=== PATIENT | male | born 1985 | race Caucasian/White ===

== ENCOUNTER 2017-07-03 20:33 | Inpatient (IN) ==
--- NOTE | 2017-07-03 20:52 | Emergency Department Note ---
Disposition Clinical Impression: Intussusception Constipation Qualifiers: Constipation type: unspecified constipation type Qualified Code(s): K59.00 - Constipation, unspecified Disposition: Admitted As Inpatient Condition: Good Time of Disposition: 03:26 General Adult HPI - General Chief complaint: ED Abdominal Pain Stated complaint: Abdominal Pain Time Seen by Provider: 07/03/17 20:41 Nursing Notes Reviewed: Yes Vital Signs Reviewed: Yes - History of Present Illness HPI Narrative: Male patient with one-week history of constipation. Having abdominal pain. Being sent from the [facility] for intussusception. 2 day history of vomiting. - Related Data Allergies Allergy/AdvReac Type Severity Reaction Status Date / Time No Known Allergies Allergy Verified 07/03/17 20:34 All systems ED: reviewed and negative except as stated. Constitutional: Denies: fever, chills ENT ED: Denies: congestion Cardiovascular: Denies: chest pain, palpitations, syncope Respiratory: Denies: cough, dyspnea Gastrointestinal: Reports: abdominal pain, nausea, vomiting, constipation. Denies: diarrhea, hematemesis, melena, hematochezia Genitourinary: Denies: urgency, dysuria, frequency, hematuria Musculoskeletal: Denies: back pain, neck pain Integumentary: Denies: rash Neurological: Denies: headache, weakness, numbness Past Medical History - Past Medical History Medical history: Reports: no medical history Psychiatric history: Reports: anxiety, depression, PTSD - Social History Smoking Status: Current every day smoker Smokeless Tobacco Status: Yes Alcohol use: Reports: heavy Drug use: Reports: opiates Physical Exam - General Limitations: no limitations General appearance: alert, in distress (Appears in pain.) - Head Head exam: atraumatic, normocephalic, normal inspection - Eye Eye exam: Present: normal appearance, PERRL, EOMI - ENT ENT exam: normal exam, normal oropharynx, mucous membranes moist - Neck Neck exam: Present: normal inspection, full ROM, trachea midline - Chest Chest inspection: Present: normal inspection, symmetric chest wall rise - Respiratory Respiratory exam: Present: normal lung sounds bilaterally. Absent: respiratory distress - Cardiovascular Cardiovascular exam: Present: regular rate, normal rhythm, normal heart sounds - Abdominal Exam Abdominal exam: Present: soft, tenderness (Diffusely), hypoactive bowel sounds ( Present but hypoactive), other (Non-peritoneal). Absent: distention, rebound, rigidity, organomegaly, Berry's sign, Rovsing's sign, tenderness at McBurney's Point - Extremities Exam Extremities exam: Present: normal inspection, full ROM, normal capillary refill. Absent: tenderness, pedal edema - Back Exam Back exam: Present: normal inspection, full ROM. Absent: tenderness - Neurological Exam Neurological exam: Present: alert, oriented X3 - Psychiatric Psychiatric exam: Present: normal affect, normal mood - Skin Skin exam: Present: warm, dry, intact, normal color. Absent: rash, cyanosis, diaphoresis Course Course Narrative: Patient being sent by EMS from the [facility] for an intussusception. He has had no bowel movement in one week and was complaining of some abdominal pain and nausea vomiting. He had a full workup at the [facility] that showed elevated liver enzymes ever greater than 1000. His other lab workup was basically normal. We did upload the scans the patient's abdomen here. It was not over read by our radiologist. On exam patient is resting comfortably in bed. He is admitted heroin user. He states he has not used in quite some time. He is unaware that his liver enzymes have been elevated previously. He states he possibly does have hepatitis B has not been diagnosed. He reports nausea and vomiting yesterday. He states he is still nauseated. He has vomited while he has been in our department. On exam his abdomen is diffusely tender. More so on the right lower quadrant than the left however the intussusception is on the left. - Reevaluation(s) Reevaluation #1: Surgery has been consult. We will admit the patient to the hospital. - Consultations Consultation #1: I spoke with Dr Bradley from surgery. He requested the Pt be placed on D5/ NS and that he would be in to see the Pt. Time: 22:11 Consultation #2: Dr. Orosco accepted patient in stable condition. Time: 23:50 Vital Signs Temperature 98.0 F 07/03/17 20:39 Pulse Rate 74 07/03/17 20:39 Respiratory Rate 16 07/03/17 20:39 Blood Pressure 136/82 07/03/17 20:39 O2 Sat by Pulse Oximetry 97 07/03/17 20:39 Temperature 97.9 F 07/04/17 02:24 Pulse Rate 66 07/04/17 02:24 Respiratory Rate 14 07/04/17 02:24 Blood Pressure 119/73 07/04/17 02:24 O2 Sat by Pulse Oximetry 98 07/04/17 02:24 Oxygen Delivery Oxygen Delivery Room Air Medical Decision Making - Medical Records Medical records reviewed: Yes I reviewed the patient's medical records. - Lab Data Lab results reviewed: Yes I reviewed the patient's lab results. Result diagrams: 07/04/17 00:54 07/04/17 00:54 Lab Results 07/03/17 Range/Units 21:33 Urine Color Dark Yellow (Yellow) Urine Clarity Cloudy A (Clear) Urine pH 7.5 (5.0-8.0) pH Units Ur Specific [place] > 1.030 H (1.010-1.025) Urine Protein Trace (Neg-Trace) mg/dL Urine Glucose (UA) Normal (Normal) mg/dL Urine Ketones Negative (Negative) mg/dL Urine Blood Negative (Negative) Urine Nitrite Negative (Negative) Urine Bilirubin Moderate H (Negative) Urine Urobilinogen >=8.0 H (Normal) mg/dL Ur Leukocyte Esterase Negative (Negative) Urine Microscopic RBC 0-3 (0-3) per hpf Urine Microscopic WBC 0-3 (0-3) per hpf Ur Squamous Epith Cells None Seen (None-Few) per lpf Amorphous Sediment Few (Few) Urine Bacteria Few (None-Few) per hpf Hyaline Casts None Seen (None-Few) per lpf - Radiology Data Radiology results reviewed: Yes I reviewed the patient's radiology results. Attestation Statement - Attestation Attestation: I, Lit Angulo MD, personally evaluated this patient and discussed their management with the resident physician. I reviewed the resident's note and agree with the documented findings, medical decision making, and plan of care. 32-year-old male transferred from the [facility] urgent care for surgical consultation for a small bowel intussusception. Patient presented there with a one-week history of abdominal pain associated with nausea and vomiting. Pain is generalized throughout the abdomen but is worse in the right mid and lower abdomen. Patient has a history of a ventral hernia repair in 2011. No other abdominal surgeries. He admits to IV drug abuse and injects heroin daily. He is not used any heroin today but did yesterday. He states that every time he eats he vomits. He vomited twice yesterday but has not vomited today. He was seen at the [facility] today and workup there revealed markedly elevated liver enzymes consistent with acute hepatitis. He also had a CT of the abdomen pelvis which showed a small bowel intussusception in the left abdomen. On examination patient is a well-developed well-nourished male in no acute distress. He is alert and oriented 3. There is no cyanosis or diaphoresis. Chest is nontender to palpation. Breath sounds are clear and equal bilaterally. Heart regular rate and rhythm. Abdomen is soft with decreased bowel sounds. There is moderate right mid and lower abdominal tenderness with mild diffuse tenderness. Mild guarding but no rebound. No CVA tenderness. Labs and CT from the [facility] reviewed. The surgeon pneumatic system conveyor operator, Dr. Bradley, was consulted and will follow-up with the patient in the emergency department. After evaluating the patient in the emergency department Dr. Brand requested patient be admitted by the hospitalist with surgical consultation. The hospitalist, Dr. Orosco, was consulted and accepted admission of the patient.
[2017-07-03] MEDS ORDERED: Ondansetron 4 MG/2 ML VIAL IVP ONE ×2 (21:46→22:30)
[2017-07-03] MEDS ORDERED: Ondansetron 4 MG/2 ML VIAL ONE (21:47)
[2017-07-03] MEDS ORDERED: *HR* FentaNYL (PF) 100 MCG/2 ML VIAL IVP ONE ×2 (21:50→22:30)
[2017-07-03 21:51] LABS: Bilirubin,Urine Moderate (Negative); Blood,Urine Negative (Negative); Clarity,Urine Cloudy (Clear); Color,Urine Dark Yellow (Yellow); Glucose,Urine (UA) Normal (Normal); Ketones,Urine Negative (Negative); Leukocyte Esterase,Urine Negative (Negative); Nitrite,Urine Negative (Negative); PH,Urine 7.5 pH Units (5.0-8.0); Protein,Urine Trace mg/dL (Neg-Trace); Specific Gravity,Urine > 1.030 (1.010-1.025); Urobilinogen,Urine >=8.0 mg/dL (Normal)
[2017-07-03 21:53] LABS: Hyaline Casts,Urine None Seen per lpf (None-Few); RBC,Urine 0-3 per hpf (0-3); Squamous Epithelial Cell,Urine None Seen per lpf (None-Few); WBC,Urine 0-3 per hpf (0-3)
[2017-07-03 22:10] LABS: Bacteria,Urine Few per hpf (None-Few)
[2017-07-03 22:11] LABS: Amorphous Sediment,Urine Few (Few)
[2017-07-03] MEDS ORDERED: D5% in 0.9% NACL 1,000 ML IVC SCH (22:15)
[2017-07-03] MEDS: Nicotine 2 MG GUM BC PRN (22:50)
--- NOTE | 2017-07-04 00:23 | General Surgery Consult Note ---
Date of Encounter: 07/04/17 Time of Encounter: 00:21 Assessment and Plan (1) Abdominal pain Current Visit: Yes Status: Acute worsening abdominal pain, non peritoneal; generalized, worse in RLQ; - NPO -IVF - hold on abx - serial abdominal exams Qualifiers: Abdominal location: generalized Qualified Code(s): R10.84 - Generalized abdominal pain (2) Transaminitis Current Visit: Yes Status: Acute patient with significant EtOH and IVDA; likely due to recent alcohol use; abdominal US to eval Liver, biliary tree repeat labs in AM consider GI consult if worse (3) Intussusception intestine Current Visit: Yes Status: Acute small bowel to small bowel: likely transient - NPO IVF no abx at present - serial exams - consider US to evaluate presence; if present then will need surgery for resection History of Present Illness Consult date: 07/04/17 Reason for consult: abdominal pain History of present illness: 32M with PMH significant for drug abuse presents with 6 days of worsening abdominal pain with associated nausea and vomiting. The pain is localized to mid right abdomen, non migrating with no associated fevers, chills, chest pains or shortness of breath. No identifiable alleviating or exacerbating factors. The patient was evaluated at an OSH facility with concern for perportal swelling and small bowel to small bowel intussusception. The images were reviewed and evaluated by me. Past Med Surg Social Fam HX - Past Medical History Medical history: no medical history Psychiatric history: anxiety, depression, PTSD - Past Surgical History Surgical History: no surgical history, herniorrhaphy (ventral hernia) - Social History Smoking Status: Current every day smoker Smokeless Tobacco Status: Yes Alcohol use: heavy Drug use: opiates, IV Drug Use - Additional Family History Additional family history: non contributory Medications and Allergies 3 Allergy/AdvReac Type Severity Reaction Status Date / Time No Known Allergies Allergy Verified 07/03/17 20:34 Review of Systems All systems PM: A 10-system review of systems was performed and is negative for pertinent findings except as documented above in the HPI. General Surgery Exam Initial Vital Signs Temp Pulse Resp BP Pulse Ox 98.0 F 74 16 136/82 97 07/03/17 20:39 07/03/17 20:39 07/03/17 20:39 07/03/17 20:39 07/03/17 20:39 - General physical appearance well developed, well nourished - Eyes other (no scleral icterus), normal ocular movement - ENT normocephalic - Neck no lymphadectomy - Respiratory normal expansion, normal respiratory effort, clear to percussion, clear to auscultation - Cardiovascular Cardiovascular exam: Present: RRR - Abdomen Abdomen general surgery: Present: soft, tender (non peritoneal; tender in all quadrants, principally along the R sided) Abdominal Tenderness: Present: RUQ, LUQ, RLQ, LLQ Hernia: Present: none - Integumentary Integumentary general surgery: Present: warm and dry (no diaphoresis) - Neurologic Present: CN 2-12 grossly intact - Musculoskeletal Present: other (full range of motion appreciated in upper and lower extremitiies ) - Psychiatric Psychiatric general surgery: Present: A&Ox3 Exam Initial Vital Signs Temp Pulse Resp BP Pulse Ox 98.0 F 74 16 136/82 97 07/03/17 20:39 07/03/17 20:39 07/03/17 20:39 07/03/17 20:39 07/03/17 20:39 Results - Labs Abnormal lab results Urine Clarity Cloudy (Clear) A 07/03/17 21:33 Ur Specific [place] > 1.030 (1.010-1.025) H 07/03/17 21:33 Urine Bilirubin Moderate (Negative) H 07/03/17 21:33 Urine Urobilinogen >=8.0 mg/dL (Normal) H 07/03/17 21:33 All other labs normal. see [facility]; pertinent labs AST/ALT: >1000/>1000 WBC: 12.1 - Imaging CT scan - abdomen: report reviewed, image reviewed CT scan - pelvis: report reviewed, image reviewed (small bowel to small bowel intussception; no abscess, no free air; dilated small bowel and stomach; periportal edema) Consult Discharge Plan - Plan [facility]errals: [facility] [Primary Care Provider] -
[2017-07-04] MEDS ORDERED: *HR* HYDROmorphone (PF) 1 MG/ML SYRINGE IVP ONE (00:28)
[2017-07-04 00:59] LABS: Basophils % 0.3 %; Eosinophils # 0.2 K/mcL (0.0-0.6); Eosinophils % 1.7 %; Hematocrit 42.7 % (37.5-50.1); Hemoglobin 13.5 g/dL (12.9-16.9); Immature Granulocytes % 0.2 % (0-4); Lymphocytes # 2.3 K/mcL (0.6-4.6); Mean Corpuscular HGB Conc 31.6 g/dL (31.6-35.5); Mean Corpuscular Hemoglobin 26.9 pg (28.0-33.3); Mean Corpuscular Volume 85.1 fL (83.0-100.0); Mean Platelet Volume 8.6 fL (9.4-12.4); Monocytes # 0.8 K/mcL (0.0-1.3); Monocytes % 8.9 %; Neutrophils # 5.9 K/mcL (1.6-8.9); Platelet Count 218 K/mcL (140-400); Red Blood Count 5.02 M/mcL (4.19-5.50); Red Cell Distribution Width 15.4 % (11.5-14.5); Segmented Neutrophils % 63.9 %
--- NOTE | 2017-07-04 01:04 | Internal Med History&Physical ---
Date of Encounter: 07/04/17 Time of Encounter: 01:00 Assessment and Plan (1) Intussusception intestine Current visit: Yes Status: Acute CT scan at the [facility] revealed the presence of a small bowel intussusception. -Patient will be placed on fluids. -Dilaudid for pain control. -Famotidine 20 mg. -Patient is NPO. -Surgery has been consulted. (2) Abdominal pain Current visit: Yes Status: Acute Patient's abdominal pain is located in the right lower quadrant. -Pain radiates into his groin area. -Dilaudid for pain control. Qualifiers: Abdominal location: generalized Qualified Code(s): R10.84 - Generalized abdominal pain (3) Transaminitis Current visit: Yes Status: Acute Patient was worked up at the [facility], and his liver enzymes were over 1000. -Patient states that he possibly does have hepatitis B, but has never been diagnosed. -Patient admits to being an IV drug user. Internal Medicine - H&P: HPI Chief complaint: Abdominal pain Admitted From: Hospital to Hospital Transfer History of present illness: Mr. Evans is a 32 year old male is presented to the emergency department from the [facility] for a surgical consultation for a small bowel intussusception. Patient presented with a one-week history of upper abdominal pain associated with nausea and vomiting. His pain is generalized throughout his abdomen, but is worse in his right middle and lower abdomen. This pain is described as a sharp pain, and radiates into his groin. Patient has a noted surgical history of a ventral hernia repair in 2011. He has had no other abdominal surgeries besides this. Patient admits to a history of IV drug use, and states that he injects heroin daily. Patient states that his abdominal pain began approximately 1 week ago. His pain started in the epigastric region. Patient was worked up in the [facility]. Liver enzymes were markedly elevated, at greater than 1000. CT of the abdomen and pelvis was also performed, which showed a small bowel intussusception in the left abdomen. On physical examination in the ER, patient was well-developed and well-nourished in no acute distress. He was alert and oriented 3. Chest nontender to palpation. There was mild guarding in his abdomen, but no rebound. Patient's vital signs on admission were as follows: Temperature was 98.0, pulse rate was 70, respiratory rate was 16, blood pressure was 152/80, and O2 saturation was 97. When admitted to the ER, patient was given fentanyl, 50 g, Zofran, and was given fluids. Patient is now NPO, and surgery has been consulted Past Med Surg Social Fam HX - Past Medical History Medical history: no medical history Psychiatric history: anxiety, depression, PTSD - Past Surgical History Surgical History: no surgical history, herniorrhaphy (ventral hernia) - Social History Smoking Status: Current every day smoker Smokeless Tobacco Status: Yes Alcohol use: heavy Drug use: opiates, IV Drug Use Internal Medicine - H&P: Meds 3 Allergy/AdvReac Type Severity Reaction Status Date / Time No Known Allergies Allergy Verified 07/03/17 20:34 All Systems PM: A 10-system review of systems was performed and is negative for pertinent findings except as documented above in the HPI. - Constitutional Constitutional: no chills, no fatigue, no fever(s), no weight gain, no weight loss - Cardiovascular Cardiovascular ROS IM: no chest pain, no diaphoresis, no dyspnea, no dyspnea on exertion, no edema - Respiratory Respiratory: no cough, no wheezing - Gastrointestinal Gastrointestinal: abdominal pain, vomiting, no change in bowel habits - Constitutional Vitals: Temp Pulse Resp BP Pulse Ox 98.0 F 70 16 141/62 97 07/03/17 20:39 07/03/17 22:47 07/04/17 00:09 07/04/17 00:09 07/03/17 22:47 General appearance: Present: no acute distress - Respiratory Respiratory exam: Present: CTAB. Absent: accessory muscle use, rales, rhonchi, wheezes - Cardiovascular Cardiovascular exam: Present: RRR, +S1, +S2. Absent: diastolic murmur, gallop, rubs, systolic murmur - GI/Abdominal GI/Abdominal exam: Present: guarding, mass, tenderness Internal Med - H&P Results - Labs CBC & Chem 7: 07/04/17 00:54 Labs: Short CBC 07/04/17 Range/Units 00:54 WBC 9.3 (4.3-11.1) K/mcL Hgb 13.5 (12.9-16.9) g/dL Hct 42.7 (37.5-50.1) % Plt Count 218 (140-400) K/mcL Neutrophils # 5.9 (1.6-8.9) K/mcL
[2017-07-04 01:12] LABS: Alanine Aminotransferase 2126 Units/L (0-55); Albumin 2.9 g/dL (3.5-5.0); Albumin/Globulin Ratio 0.8 (1.1-2.2); Alkaline Phosphatase 180 Units/L (38-126); Aspartate Amino Transferase 959 Units/L (5-34); BUN/Creatinine Ratio 7 (6-26); Bilirubin,Total 2.8 mg/dL (0.2-1.2); Blood Urea Nitrogen 6 mg/dL (8-26); Calcium 8.8 mg/dL (8.6-10.8); Carbon Dioxide 31 mEq/L (19-29); Chloride 105 mEq/L (98-109); Globulin 3.6 g/dL (2.4-3.5); Glucose 126 mg/dL (70-99); Osmolality,Calculated 289 (280-300); Potassium 4.7 mEq/L (3.5-4.5); Sodium 140 mEq/L (136-145); Total Protein 6.5 g/dL (6.0-8.3); eGFR For African Americans > 60 (> 60); eGFR For Non-African Americans > 60 (> 60)
[2017-07-04 01:18] LABS: Amylase 35 Units/L (25-125); Magnesium 2.1 mg/dL (1.6-2.6)
[2017-07-04] MEDS: *HR* HYDROmorphone 2 MG/ML SYRINGE IVP PRN ×3 (01:58→10:17)
[2017-07-04] MEDS: Nicotine 2 MG GUM BC PRN (01:59)
--- NOTE | 2017-07-04 03:58 | Event Note ---
Date of Encounter: 07/04/17 Time of Encounter: 03:52 Patient seen and examined with medical office coordinator. 32 yo drug user presents with abdominal pain. He has acute hepatitis with AST/ALT levels in the 1000s range, so one would wonder first about viral hepatitis especially that he is an IVDA. He denies tylenol intake. No bile duct dilation on CT. Etiology is viral hepatitis vs. drug induced. Will check liver functions, tylenol level, hepatitis panel, RUQ US. Gastroenterology consultation. Also, patient has Incendintal intuscuseption on CT scan and will be seen by surgery team for that.
[2017-07-04 04:27] LABS: Basophils % 0.5 %; Eosinophils # 0.1 K/mcL (0.0-0.6); Eosinophils % 1.6 %; Hemoglobin 13.9 g/dL (12.9-16.9); Immature Granulocytes % 0.4 % (0-4); Lymphocytes # 2.1 K/mcL (0.6-4.6); Mean Corpuscular HGB Conc 32.3 g/dL (31.6-35.5); Mean Corpuscular Hemoglobin 27.5 pg (28.0-33.3); Mean Corpuscular Volume 85.1 fL (83.0-100.0); Mean Platelet Volume 8.9 fL (9.4-12.4); Monocytes # 0.6 K/mcL (0.0-1.3); Monocytes % 7.3 %; Neutrophils # 4.7 K/mcL (1.6-8.9); Platelet Count 219 K/mcL (140-400); Red Blood Count 5.05 M/mcL (4.19-5.50); Red Cell Distribution Width 15.8 % (11.5-14.5); Segmented Neutrophils % 62.2 %
[2017-07-04 04:38] LABS: INR 1.4
[2017-07-04 04:41] LABS: Activated Partial Thrombo Time 43.9 Seconds (26.0-36.0); Alanine Aminotransferase 2130 Units/L (0-55); Albumin 2.9 g/dL (3.5-5.0); Albumin/Globulin Ratio 0.8 (1.1-2.2); Alkaline Phosphatase 187 Units/L (38-126); Aspartate Amino Transferase 954 Units/L (5-34); BUN/Creatinine Ratio 8 (6-26); Bilirubin,Direct 2.2 mg/dL (0.0-0.5); Bilirubin,Indirect 0.7 mg/dL (0.0-1.2); Bilirubin,Total 2.9 mg/dL (0.2-1.2); Blood Urea Nitrogen 6 mg/dL (8-26); C-Reactive Protein 6 mg/L (Less than 5); Calcium 8.6 mg/dL (8.6-10.8); Carbon Dioxide 25 mEq/L (19-29); Chloride 106 mEq/L (98-109); Globulin 3.7 g/dL (2.4-3.5); Glucose 104 mg/dL (70-99); Osmolality,Calculated 282 (280-300); Potassium 4.7 mEq/L (3.5-4.5); Sodium 137 mEq/L (136-145); Total Protein 6.6 g/dL (6.0-8.3); eGFR For African Americans > 60 (> 60); eGFR For Non-African Americans > 60 (> 60)
[2017-07-04 05:08] LABS: Hepatitis B Surface Antigen Nonreactive (Nonreactive)
[2017-07-04] MEDS ORDERED: Famotidine 20 MG/2 ML VIAL IVP SCH (06:00)
[2017-07-04] MEDS ORDERED: *HR* Heparin 5,000 UNIT/ML VIAL SQ SCH (06:00)
[2017-07-04 10:17] VITALS: BP 124/80
[2017-07-04] MEDS ORDERED: *HR* LORazepam 2 MG/ML VIAL IVP PRN ×3 (10:22)
[2017-07-04] MEDS ORDERED: Folic Acid 1 MG TABLET PO SCH (10:30)
[2017-07-04] MEDS ORDERED: Thiamine (B-1) 100 MG TABLET PO SCH (10:30)
--- NOTE | 2017-07-04 11:25 | General Surgery Progress Note ---
<Dinah Kenyon - Last Filed: 07/04/17 14:21> Date of Encounter: 07/04/17 Time of Encounter: 11:30 - Assessment and Plan (1) Abdominal pain Status: Acute Lower abdominal pain that is nonpertioneal worse in the RLQ. Abdomen is soft, non-distended and patient is laying down comfortably in bed. Vitals wnl. Elevated AST, ALT, and Alk Phos. hep B negative. RUQ US showed gallbladder unremarkable. cystic duct normal in size. Slightly coarse liver echotexture which is nonspecific. Found to have Hepatitis C antibody positive. Abdominal pain most likely due to active hepatitis as gallbladder and cystic biliary system normal. Should follow-up with GI. Plan: - Consult GI/ F/u with GI - Surgery will sign off at this time. Please contact with further questions or concerns. Qualifiers: Abdominal location: generalized Qualified Code(s): R10.84 - Generalized abdominal pain (2) Transaminitis Status: Acute Possibly due to a combination of alcohol and hepatitis C 2/2 IVDA. US RUQ - Liver showed nonspecific changes. Plans: - hepatitis C quant - consider GI consult (3) Intussusception intestine Status: Acute Seen on CT at the [facility]. Intussusception often transient in adults. Patient does not have an acute abdomen or peritoneal signs. Patient's pain most likely due to hepatitis. (4) Hepatitis C antibody positive in blood Status: Acute most likely 2/2 IVDA. Hep C quant to see if active. Consider consulting GI. Subjective Narrative: Patient is a 32-year-old male past medical history of IV drug abuse found to have 8 days of abdominal pain and constipation found to have transaminitis and introsusception on CT. Pain is constant and worsened by eating which causes N/ V. He says he has had frequent (3x per week) vomiting for years that is unrelated to food. Patient denies hematemesis, dysuria, chest pain, shortness of breath, melena, recent travel, recent contact with sick people. past surgical hx includes ventral hernia repair. Today patient states that he is still having pain lower region of abdomen less than last night and he does have an appetite today. Objective Vital Signs - Last 8 Hours Temp Pulse Resp BP Pulse Ox 07/04/17 10:13 98.2 F 67 15 124/80 100 07/04/17 07:03 97.7 F 84 15 123/78 95 Intake and Output 07/03/17 07/04/17 07/04/17 23:59 07:59 15:59 Intake Total 0 / 0 0 / 0 Output Total 0 / 0 0 / 0 Balance 0 / 0 0 / 0 Intake: Oral 0 / 0 0 / 0 Output: Urine 0 / 0 0 / 0 Other: Meal npo Percent of Meal Consumed 0% - Additional Exam Constitutional: Alert, in no acute distress, well nourished, well developed. Head: Normocephalic, atraumatic, normal contour and symmetric, no masses, lesions or scars Heart: Normal, regular rate and rhythm, no murmurs Lungs: Clear to auscultation, no wheezes, rales, or rhonchi Abdomen: tenderness in RLQ and LLQ worst in RLQ. Negative Berry's sign.Soft, nondistended and no masses palpable, bowel sounds present and normal, no guarding or rigidity. Extremities: No clubbing, cyanosis, or edema, radial pulse +2/4, capillary refill <2sec. Skin: Skin warm and dry, no lesions, no rashes, no jaundice Neurologic: Cranial nerves II through XII grossly intact, no focal deficits, strength within normal limits in all extremities Psych: Cooperative with exam, good eye contact, cognitive function intact, judgment good insight good, speech clear, thought process logical, and goal directed - Labs 07/04/17 04:22 07/04/17 04:22 Consult Discharge Plan - Plan [facility]errals: [facility] [Primary Care Provider[facility] - <Chacho Bradley - Last Filed: 07/05/17 12:01> Date of Encounter: 07/05/17 - Assessment and Plan (1) Abdominal pain Status: Acute Qualifiers: Abdominal location: right upper quadrant Qualified Code(s): R10.11 - Right upper quadrant pain (2) Transaminitis Status: Acute (3) Intussusception intestine Status: Acute Objective - Labs 07/04/17 04:22 07/04/17 04:22 - Attending Attestation I have personally seen and examined the patient. I have personally reviewed this current progress note, pertinent labs and imaging as pertains to this patient during this hospital stay. I agree with the above assessment and plan. The patient was admitted with abdominal pain in all quadrants but primarily on the right side. He does report feeling much better with minimal pain on exam. Labs reveal (+)hepatitis, normal lactate; imaging does not show any findings in regard to biliary tree or gallbladder, but there is periportal edema on CT; From a surgical standpoint, I do not feel he has an indication for surgery, but has more of a problem that is best served with gastroenterological evaluation. Surgery is available for further questioning or evaluation as needed.
[2017-07-04 12:48] LABS: Hepatitis A Antibody IgM Nonreactive (Nonreactive); Hepatitis B Core IgM Nonreactive (Nonreactive)
[2017-07-04 12:51] LABS: Hepatitis C Virus Antibody Reactive (Nonreactive)
--- NOTE | 2017-07-04 15:40 | Discharge Summary ---
Date of Encounter: 07/04/17 Time of Encounter: 15:38 - Discharge Diagnosis (1) Intussusception intestine Priority: Primary Status: Acute (2) Abdominal pain Priority: Secondary Status: Acute Qualifiers: Abdominal location: generalized Qualified Code(s): R10.84 - Generalized abdominal pain (3) Transaminitis Priority: Secondary Status: Acute Comments: Possibly due to shock liver according to GI specialist, also related to hepatitis C (4) Hepatitis C antibody positive in blood Priority: Secondary Status: Acute - Discharge Medications Home Medications: Pregabalin [Lyrica] 150 mg PO TID 07/04/17 [History] Venlafaxine [Effexor] 75 mg PO DAILY 07/04/17 [History] Allergies/Adverse Reactions: 3 Allergy/AdvReac Type Severity Reaction Status Date / Time No Known Allergies Allergy Verified 07/03/17 20:34 Date of admission: 07/04/17 05:46 Primary care physician: PCP [facility] Consults: 07/04/17 10:22 Consult to [facility] [CONS] Routine Reason for Consult: histry of alcoholism - Patient Status Disposition: Left Against Medical Advice Condition: Good - Discharge Instructions [facility] - Hospital course: Mr. Evans is a 32 year old male with a past medical history of IV drug abuse, polysubstance abuse, anxiety, depression, PTSD who presented to the emergency department from the [facility] for a surgical consultation for a small bowel intussusception. Patient presented with a one-week history of upper abdominal pain associated with nausea and vomiting. His pain was generalized throughout his abdomen, worse in his right middle and lower abdomen. This pain was described as a sharp, and radiates into his groin. Patient has a noted surgical history of a ventral hernia repair in 2011. He has had no other abdominal surgeries besides this. Stated that he injects heroin daily. Patient stated that his abdominal pain began approximately 1 week ago. Liver enzymes were markedly elevated, at greater than 1000, AST > 2000. CT of the abdomen and pelvis was also performed at the [facility], which showed a small bowel intussusception in the left abdomen. Surgery was consulted and no recommendations for an intermediate surgical procedure were given. GI saw the patient and recommended to start clears. Unfortunately patient became upset about not having a surgical procedure and decided to leave AGAINST MEDICAL ADVICE. He was explained the risks of fall intussusception. Time spent discussing smoking cessation with patient: 3 to 10 minutes - Time Spent with Patient Total time spent providing and/or coordinating discharge services: Less than 30 minutes (25 min) - Constitutional Vitals: Temp Pulse Resp BP Pulse Ox 98.2 F 67 15 124/80 100 07/04/17 10:13 07/04/17 10:13 07/04/17 10:13 07/04/17 10:13 07/04/17 10:13 General appearance: Present: A&O X 3, no acute distress - Head Head exam: Present: atraumatic, normocephalic - Eye Eye exam: Present: PERRL, conjuntiva pink, sclera anicteric Pupils: Present: PERRL - Neck Neck exam general surgery: Present: supple, trachea midline. Absent: lymphadenopathy - Respiratory Respiratory exam: Present: CTAB. Absent: accessory muscle use, rales, rhonchi, wheezes - Cardiovascular Cardiovascular exam: Present: RRR, +S1, +S2. Absent: diastolic murmur, gallop, rubs, systolic murmur - GI/Abdominal GI/Abdominal exam: Present: distended (Abdominal distention), normal bowel sounds, soft, tenderness (Mild tenderness), no peritoneal signs - Extremities Exam Extremities exam: Present: warm, radial pulses palpable and symmetrical. Absent : calf tenderness, cyanotic, pedal edema - Neurological Exam Neurological exam: Present: CN II-XII intact, oriented X3, no focal deficits. Absent: pronater drift, facial droop, speech deficit - Skin Skin exam: Present: dry, intact
--- NOTE | 2017-07-04 16:44 | Gastroenterology Consult Note ---
Date of Encounter: 07/04/17 Time of Encounter: 13:00 - Assessment and plan (1) Elevated LFTs Current Visit: No Status: Acute Assessment and plan: May be related to ischemic hepatitis. Pt needs IV hydration, monitor vital signs and serial LFTs. May also be related to hepatitis C. Pt states he is signing out AMA if he does not have surgery. Pt is encouraged to stay. He is also advised that he needs to follow as an outpatient, and failure to do so may result in worsening condition and even . (2) Abdominal pain Current Visit: No Status: Acute Assessment and plan: CT at [facility] showed possible intussusception, pt was evaluated by surgeon and surgery was not advised at this time. US abdomen showed irregularity of liver but no other acute findings. Qualifiers: Abdominal location: right upper quadrant Qualified Code(s): R10.11 - Right upper quadrant pain (3) Intussusception intestine Current Visit: No Status: Acute (4) Hepatitis C antibody positive in blood Current Visit: No Status: Acute Assessment and plan: Needs to follow as outpatient. - Time Spent With Patient Total time spent is greater than 50% in coordination of care (as documented) at patient's floor/unit and/or counseling patient: GI History of Present Illness - Data of Consult Patient: new to practice Consult date: 07/04/17 Requesting Physician: Yaw Chau - Consult Narrative Reason for consult: abdominal pain/elevated LFTs History of present illness: Mr. Evans is a 32 year old male who presented with abdominal pain, nausea and vomiting for the past 6 days. He had workup at [facility] which showed possible intussusception. Surgery was consulted. The patient was not recommended surgery at this time. Pain was treated with Dilaudid GI consult was requested. He was also noted to have very elevated LFTs with a AST of 954 and ALT of 2130 albumin 2.9, and total bili 2.9. He does have a history of IV drug abuse. He reports using heroin on the day before he was admitted. He also has a history of intermittent alcohol abuse but denies any daily alcohol consumption. Pain is right upper and lower quadrants. He complains of constipation, last BM 8 days ago. He reports poor appetite and weight loss of 40 pounds in the past 3 months. He denies any bloody or tarry stools. He denies abdominal bloating. He has a history of GERD and is on omeprazole at home. Colonoscopy: denies EGD: denies Past Med Surg Social Fam HX - Past Medical History Medical history: no medical history Psychiatric history: anxiety, depression, PTSD - Past Surgical History Surgical History: no surgical history, herniorrhaphy - Social History Smoking Status: Current every day smoker Smokeless Tobacco Status: Yes Alcohol use: heavy Drug use: opiates Review of Systems: GI: as per [facility] GENERAL: denies fever, has some chills EYES: denies yellow discoloration ENT: denies pain with swallowing or difficulty swallowing CARDIO: denies chest pain, palpitations RESP: No Shortness of breath with exertion : denies change in color of urine NEURO: denies any weakness HEME: Denies any bruising MS: denies joint pain, joint swelling or back pain. DERM: denies rash or itching PSYCH: Denies history of anxiety or depression - Constitutional Vitals: Temp Pulse Resp BP Pulse Ox 98.2 F 67 15 124/80 100 07/04/17 10:13 07/04/17 10:13 07/04/17 10:13 07/04/17 10:13 07/04/17 10:13 Exam: CONSTITUTIONAL:~alert, no acute distress.~HEAD:~normocephalic.~EYES:~no jaundice.~NECK:~no obvious swelling.~HEART:~regular rate and rhythm, no murmurs. ~LUNGS:~bilateral good air entry.~ABDOMEN:~non distended, soft, tender right upper and lower quadrants. no masses pulpable, no organomegaly.~RECTAL EXAM:~ Deferred.~EXTREMITIES:~no clubbing, cyanosis or edema, multiple small circular scars noted to bilateral arms~SKIN:~no stigmata of chronic liver disease.~ NEUROLOGIC:~no obvious focal defect.~~~~ Results - Labs CBC & Chem 7: 07/04/17 04:22 07/04/17 04:22 Labs: Last Result Calcium 8.6 mg/dL (8.6-10.8) 07/04/17 04:22 C-Reactive Protein 6 mg/L (Less than 5) H 07/04/17 04:22 Entire Visit Hgb 13.9 g/dL (12.9-16.9) 07/04/17 04:22 Hct 43.0 % (37.5-50.1) 07/04/17 04:22 PT 15.0 Seconds (9.4-12.1) H 07/04/17 04:22 Total Bilirubin 2.9 mg/dL (0.2-1.2) H 07/04/17 04:22 AST 954 Units/L (5-34) H 07/04/17 04:22 ALT 2130 Units/L (0-55) H 07/04/17 04:22 Amylase 35 Units/L (25-125) 07/04/17 00:54 Acetaminophen 1.0 mcg/mL (10-30) L 07/04/17 04:22 - ABG ABG results: PT/INR, D-dimer PT 15.0 Seconds (9.4-12.1) H 07/04/17 04:22 - Impressions Impressions Abdomen Ultrasound 07/04/17 08:30 IMPRESSION: 1. Slightly coarse liver echotexture which is nonspecific. 2. Otherwise unremarkable right upper quadrant ultrasound. D/ / Wendy Ferreira MD / Wendy Ferreira MD Interpreting Provider: Wendy Ferreira MD Consult Discharge Plan - Plan Referrals: [facility] [Primary Care Provider] -
== END 2017-07-04 13:30 | disposition left against medical advice (07) | DRG 388 ==
LOC: EMEROO 20:33 → 3ANU 20:33
PROVIDERS: ADMIT Hospitalist; ATTEND Hospitalist